=== PATIENT | female | born 1930 | race African-American/Black ===

== ENCOUNTER 2017-03-31 18:30 | Inpatient (IN) | payer OTHER ==
[2017-03-31] MEDS ORDERED: ACETAMINOPHEN 325 MG TABLET (FP) PO ONE (19:36)
--- NOTE | 2017-03-31 19:36 | PDOC ---
History of Present Illness - General Chief Complaint: Pain Stated Complaint: RT LEG PAIN Time Seen by Provider: 03/31/17 19:28 - History of Present Illness Initial Comments: 03/31/17 19:35 Patient is a 86-year-old female with past medical history of diabetes, coronary artery disease s/p bypass 6 years ago, hypertension who presents to the emergency department today complaining of right lower leg pain. Patient states that she woke up this morning and her leg was very stiff swollen and painful. She states this has never happened to her before. She currently takes aspirin but no other blood thinners. Denies recent travel, estrogen use, smoking. She states that it hurts to bear weight. Denies fevers, recent illness, chills, chest pain, shortness of breath, difficulty breathing, nausea, vomiting and diarrhea. Past History - Travel Traveled outside of the country in the last 30 days: No Close contact w/someone who was outside of country & ill: No - Past Medical History Allergies/Adverse Reactions: Allergies Allergy/AdvReac Type Severity Reaction Status Date / Time No Known Drug Allergies Allergy Verified 03/31/17 18:44 Home Medications: Ambulatory Orders Losartan Potassium [Cozaar -] 50 mg PO DAILY 08/03/15 Metformin HCl [Glucophage] 1,000 mg PO BID 08/03/15 Sitagliptin Phosphate [Januvia -] 50 mg PO DAILY@0700 08/03/15 Cholecalciferol (Vitamin D3) [Vitamin D3] 50,000 unit PO Q7D 08/17/15 Atorvastatin Ca [Lipitor] 40 mg PO HS 03/31/17 Anemia: No Asthma: No Cancer: No Cardiac Disorders: Yes (bypass 05/2011) CVA: No COPD: No CHF: No Dementia: No Diabetes: Yes GI Disorders: No Disorders: No HTN: Yes Hypercholesterolemia: Yes Liver Disease: No Seizures: No Thyroid Disease: No - Surgical History Abdominal Surgery: No Appendectomy: No Cardiac Surgery: Yes (cardiac bypass) Cholecystectomy: No Lung Surgery: No Neurologic Surgery: No Orthopedic Surgery: No - Immunization History Immunization Up to Date: Yes - Suicide/Smoking/Psychosocial Hx Smoking Status: Yes Smoking History: Never smoked Have you smoked in the past 12 months: No Number of Cigarettes Smoked Daily: 0 If you are a former smoker, when did you quit?: 40YRS AGO Information on smoking cessation initiated: No Hx Alcohol Use: No Drug/Substance Use Hx: No Substance Use Type: None Hx Substance Use Treatment: No Review of Systems - Review of Systems Able to Perform ROS?: Yes Comments:: 03/31/17 19:46 CONSTITUTIONAL: Absent: fever, chills, diaphoresis, generalized weakness, malaise, loss of appetite HEENT: Absent: rhinorrhea, nasal congestion, throat pain, throat swelling, difficulty swallowing, mouth swelling, ear pain, eye pain, visual Changes CARDIOVASCULAR: Absent: chest pain, loss of consciousness, palpitations, irregular heart rate, peripheral edema RESPIRATORY: Absent: cough, shortness of breath, dyspnea with exertion, orthopnea, wheezing, stridor, hemoptysis GASTROINTESTINAL: Absent: abdominal pain, abdominal distension, nausea, vomiting, diarrhea, constipation, melena, hematochezia GENITOURINARY: Absent: dysuria, frequency, urgency, hesitancy, hematuria, flank pain, genital pain MUSCULOSKELETAL: Present: RLE edema, pain. Absent: , arthralgia, joint swelling SKIN: Absent: rash, itching, pallor HEMATOLOGIC/IMMUNOLOGIC: Absent: easy bleeding, easy bruising, lymphadenopathy, frequent infections ENDOCRINE: Absent: unexplained weight gain, unexplained weight loss, heat intolerance, cold intolerance NEUROLOGIC: Absent: headache, focal weakness or paresthesias, dizziness, unsteady gait, seizure, mental status changes, bladder or bowel incontinence PSYCHIATRIC: Absent: anxiety, depression, suicidal or homicidal ideation, hallucinations. Is the patient limited Chadian proficient: No *Physical Exam - Vital Signs Last Vital Signs Temp Pulse Resp BP Pulse Ox 98.3 F 75 18 155/87 98 03/31/17 18:42 03/31/17 18:42 03/31/17 18:42 03/31/17 18:42 03/31/17 18:42 - Physical Exam Comments: 03/31/17 19:47 GENERAL: Well developed, well nourished. AAOx3 No acute distress, breathing easily in exam chair. HEENT: Normocephalic, atraumatic. PERRLA, EOMI. No conjunctival pallor. Sclera are non- icteric. Moist mucous membranes. Oropharynx is clear. NECK: Supple. Full ROM. No JVD. Carotid pulses 2+ and symmetric, without bruits. No thyromegaly. No lymphadenopathy. CARDIOVASCULAR: Regular rate and rhythm. No murmurs, rubs, or gallops. Distal pulses are 2+ and symmetric. PULMONARY: No evidence of respiratory distress. Lungs clear to auscultation bilaterally. No wheezing, rales or rhonchi. ABDOMINAL: Soft. Non-tender. Non-distended. No rebound or guarding. No organomegaly. Normoactive bowel sounds. MUSCULOSKELETAL Normal range of motion at all joints. No bony deformities or tenderness. No CVA tenderness. EXTREMITIES: Edema of RLE. Pain to palpation of the posterior lower extremity from the level of the knee and below. No cyanosis. No clubbing. SKIN: Warm and dry. Normal capillary refill. No rashes. No jaundice. NEUROLOGICAL: Alert, awake, appropriate. Cranial nerves 2-12 intact. No deficits to light touch and temperature in face, upper extremities and lower extremities. No motor deficits in the in face, upper extremities and lower extremities. Normoreflexic in the upper and lower extremities. Normal speech. Toes are down- going bilaterally. Gait is normal without ataxia. PSYCHIATRIC: Cooperative. Good eye contact. Appropriate mood and affect. ED Treatment Course - LABORATORY CBC & Chemistry Diagram: 03/31/17 20:12 03/31/17 20:12 Medical Decision Making - Medical Decision Making 03/31/17 19:36 Patient is a 86-year-old female with past medical history of diabetes, coronary artery disease s/p bypass 6 years ago, hypertension who presents to the emergency department today complaining of right lower leg pain. Given exam findings high suspicion for right lower extremity DVT. We will send the patient for duplex scan of the leg. We'll also give Tylenol for pain. Reevaluate. 03/31/17 20:05 Received a call from edie Benjamin. The duplex ultrasound of the right lower extremity shows a DVT in the right popliteal vein. We'll continue to workup the patient at this time for unprovoked DVT. Will see if pt is a candidate for outpatient DVT treatment 1.CBC, CMP, PT/INR, PTT 03/31/17 21:[address] Sandoval Labs come back within normal limits. BUN and creatinine are 17 over 1.0 respectively. We will call Dr. Sandoval at this time for further management of the patient. And to see if she could possibly follow-up as an outpatient. 03/31/17 21:48 Call back received from Dr. Sandoval. Given patient's past medical history and the fact that this is an unprovoked DVT, she would like to admit the patient for further workup. Recommending Lovenox at this time. First dose Lovenox given in the ED, patient to be admitted to [facility]. *DC/Admit/Observation/Transfer Diagnosis at time of Disposition: Popliteal DVT (deep venous thrombosis) Qualifiers: Chronicity: acute Laterality: right Qualified Code(s): I82.431 - Acute embolism and thrombosis of right popliteal vein - Discharge Dispostion Condition at time of disposition: Stable Admit: Yes
[2017-03-31] MEDS ORDERED: ACETAMINOPHEN 325 MG TABLET (FP) ONE (19:39)
[2017-03-31 20:23] LABS: BASOPHIL 1.3 % (0-2.0); EOSINOPHIL 2.1 % (0-4.5); MCH 26.3 pg (25.7-33.7); MCHC 34.5 g/dl (32.0-36.0); MEAN CELL VOLUME 76.3 fl (80-96); MEAN PLT VOLUME 8.1 fl (7.5-11.1); NEUTROPHILS 62.8 % (42.8-82.8); PLATELET COUNT 158 K/MM3 (134-434); RDW 15.7 % (11.6-15.6); WHITE BLOOD COUNT 9.6 K/mm3 (4.0-10.0)
[2017-03-31 20:37] LABS: INR 0.98 (0.82-1.09); PROTHROMBIN TIME (PATIENT) 11.1 SEC (9.98-11.88)
[2017-03-31 20:48] LABS: ALBUMIN 3.5 g/dl (3.4-5.0); ALK PHOS 92 U/L (45-117); ANION GAP 4 (8-16); BILIRUBIN,TOTAL 0.4 mg/dL (0.2-1.0); CALCIUM 9.5 mg/dL (8.5-10.1); CO2 30 mmol/L (21-32); GLUCOSE,RANDOM 125 mg/dL (74-106); SGOT/AST 16 U/L (15-37); SGPT/ALT 21 U/L (12-78); TOT PROT 7.4 g/dl (6.4-8.2)
[2017-03-31] MEDS ORDERED: ENOXAPARIN NA (PORCINE) 100 MG/1 ML DISP.SYRIN SQ ONE (22:58)
[2017-03-31] MEDS: ENOXAPARIN NA (PORCINE) 80 MG/0.8 ML DISP.SYRIN SQ SCH (23:12)
[2017-04-01] MEDS ORDERED: ACETAMINOPHEN 325 MG TABLET (FP) PO PRN (00:18)
[2017-04-01 02:36] VITALS: BMI 34.5
[2017-04-01] MEDS: metFORMIN HCL 500 MG TABLET (FP) PO SCH ×2 (06:35→16:43)
[2017-04-01] MEDS: sitaGLIPtin PHOSPHATE 25 MG TABLET (FP) PO SCH (06:36)
[2017-04-01] MEDS ORDERED: FLU VACCINE QUAD 60 MCG/0.5 ML (MDV 17-18) IM ONE (10:00)
[2017-04-01] MEDS: LOSARTAN POTASSIUM 50 MG TABLET (FP) PO SCH (11:07)
[2017-04-01] MEDS: ENOXAPARIN NA (PORCINE) 80 MG/0.8 ML DISP.SYRIN SQ SCH ×3 (11:08→22:14)
--- NOTE | 2017-04-01 11:24 | CONSULT ---
Consult Consult Specialty:: Hematology Reason for Consultation:: DVT - History of Present Illness History of Present Illness: Patient is a 86-year-old female with past medical history of diabetes, coronary artery disease s/p bypass 6 years ago, hypertension who presents to the emergency department today complaining of right lower leg pain. Patient states that she woke up this morning and her leg was very stiff swollen and painful. She states this has never happened to her before. She currently takes aspirin but no other blood thinners. Denies recent travel, estrogen use, smoking. She states that it hurts to bear weight. Denies fevers, recent illness, chills, chest pain, shortness of breath, difficulty breathing, nausea, vomiting and diarrhea. - History Source History Provided By: Patient, Medical Record Limitations to Obtaining History: No Limitations - Past Medical History Cardio/Vascular: Yes: CAD. No: HTN - Alcohol/Substance Use Hx Alcohol Use: No - Smoking History Smoking history: Former smoker Have you smoked in the past 12 months: No Aproximately how many cigarettes per day: 0 If you are a former smoker, when did you quit?: 40YRS AGO Home Medications - Allergies Allergies/Adverse Reactions: Allergies Allergy/AdvReac Type Severity Reaction Status Date / Time No Known Drug Allergies Allergy Verified 03/31/17 18:44 - Home Medications Home Medications: Ambulatory Orders Losartan Potassium [Cozaar -] 50 mg PO DAILY 08/03/15 Metformin HCl [Glucophage] 1,000 mg PO BID 08/03/15 Sitagliptin Phosphate [Januvia -] 50 mg PO DAILY@0700 08/03/15 Cholecalciferol (Vitamin D3) [Vitamin D3] 50,000 unit PO Q7D 08/17/15 Atorvastatin Ca [Lipitor] 40 mg PO HS 03/31/17 Physical Exam Vital Signs: Vital Signs Temperature 97.5 F L 04/01/17 10:52 Pulse Rate 78 04/01/17 10:52 Respiratory Rate 18 04/01/17 10:52 Blood Pressure 130/72 04/01/17 10:52 O2 Sat by Pulse Oximetry (%) 98 04/01/17 02:23 Constitutional: Yes: Well Nourished, No Distress, Calm Eyes: Yes: Conjunctiva Clear, EOM Intact HENT: Yes: Atraumatic, Normocephalic Neck: Yes: Supple, Trachea Midline Cardiovascular: Yes: Regular Rate and Rhythm Respiratory: Yes: Regular, CTA Bilaterally Gastrointestinal: Yes: Normal Bowel Sounds, Soft, Abdomen, Obese Extremities: Yes: WNL, Other (R>L) Edema: No Integumentary: Yes: WNL Neurological: Yes: Alert, Oriented Psychiatric: Yes: Alert, Oriented Imaging - Results Ultrasound: Report Reviewed Problem List - Problems (1) Popliteal DVT (deep venous thrombosis) Code(s): I82.439 - ACUTE EMBOLISM AND THROMBOSIS OF UNSPECIFIED POPLITEAL VEIN Qualifiers: Chronicity: acute Laterality: right Qualified Code(s): I82.431 - Acute embolism and thrombosis of right popliteal vein; I82.431 - Acute embolism and thrombosis of right popliteal vein; I82.431 - Acute embolism and thrombosis of right popliteal vein; I82.431 - Acute embolism and thrombosis of right popliteal vein (2) Hypertension Code(s): I10 - ESSENTIAL (PRIMARY) HYPERTENSION Qualifiers: Hypertension type: essential hypertension Qualified Code(s): I10 - Essential (primary) hypertension; I10 - Essential (primary) hypertension; I10 - Essential (primary) hypertension Assessment/Plan DVT ( new), though age and co-morbidities play a role, thus far no specific risk factor elicited. Microcytosis without anemia High RDW. -change to Eliquis from tomorrow (10 mg twice daily for 7 days followed by 5 mg twice daily) - for iron studies -she has a good Performance status, to consider OP cancer screening including GI w/u. -d/w Daughters and pt. Left message to office.
--- NOTE | 2017-04-01 13:05 | EKG ---
Test Reason : Blood Pressure : / mmHG Vent. Rate : 063 BPM Atrial Rate : 063 BPM P-R Int : 216 ms QRS Dur : 090 ms QT Int : 400 ms P-R-T Axes : 069 -14 048 degrees QTc Int : 409 ms POOR DATA QUALITY, INTERPRETATION MAY BE ADVERSELY AFFECTED SINUS RHYTHM WITH 1ST DEGREE A-V BLOCK NONSPECIFIC T WAVE ABNORMALITY ABNORMAL ECG WHEN COMPARED WITH ECG OF 17-AUG-2015 18:38, NO SIGNIFICANT CHANGE WAS FOUND Confirmed by VIELKA PEREZ MD ([id number]) on 04/01/2017 1:05:14 PM Referred By: Confirmed By:VIELKA PEREZ MD
--- NOTE | 2017-04-01 17:22 | HP ---
Admitting History and Physical - Primary Care Physician PCP: Santi Sandoval - Admission History of Present Illness: - 86-year-old female with past medical history of diabetes, coronary artery disease s/p bypass 6 years ago, hypertension who presents to the emergency department today complaining of right lower leg pain. Patient states that she woke up this morning and her leg was very stiff swollen and painful. She states this has never happened to her before. She currently takes aspirin but no other blood thinners. Denies recent travel, estrogen use, smoking. She states that it hurts to bear weight. Denies fevers, recent illness, chills, chest pain, shortness of breath, difficulty breathing, nausea, vomiting and diarrhea. - Past Medical History Cardiovascular: Yes: CAD. No: HTN Endocrine: Yes: Diabetes Mellitus - Smoking History Smoking history: Former smoker Have you smoked in the past 12 months: No Aproximately how many cigarettes per day: 0 If you are a former smoker, when did you quit?: 40YRS AGO - Alcohol/Substance Use Hx Alcohol Use: No Home Medications - Allergies Allergies/Adverse Reactions: Allergies Allergy/AdvReac Type Severity Reaction Status Date / Time No Known Drug Allergies Allergy Verified 03/31/17 18:44 - Home Medications Home Medications: Ambulatory Orders Losartan Potassium [Cozaar -] 50 mg PO DAILY 08/03/15 Metformin HCl [Glucophage] 1,000 mg PO BID 08/03/15 Sitagliptin Phosphate [Januvia -] 50 mg PO DAILY@0700 08/03/15 Cholecalciferol (Vitamin D3) [Vitamin D3] 50,000 unit PO Q7D 08/17/15 Atorvastatin Ca [Lipitor] 40 mg PO HS 03/31/17 Physical Examination Vital Signs: Vital Signs Temperature 98.5 F 04/01/17 14:14 Pulse Rate 83 04/01/17 14:14 Respiratory Rate 20 04/01/17 14:14 Blood Pressure 139/64 04/01/17 14:14 O2 Sat by Pulse Oximetry (%) 99 04/01/17 09:00 Constitutional: Yes: No Distress HENT: Yes: Atraumatic Neck: Yes: Supple Cardiovascular: Yes: Regular Rate and Rhythm Respiratory: Yes: CTA Bilaterally Gastrointestinal: Yes: Normal Bowel Sounds Extremities: Yes: Other (rlex sweling) Neurological: Yes: Alert, Oriented Problem List - Problems (1) Popliteal DVT (deep venous thrombosis) Assessment/Plan: on lovenox injections Code(s): I82.439 - ACUTE EMBOLISM AND THROMBOSIS OF UNSPECIFIED POPLITEAL VEIN Qualifiers: Chronicity: acute Laterality: right Qualified Code(s): I82.431 - Acute embolism and thrombosis of right popliteal vein; I82.431 - Acute embolism and thrombosis of right popliteal vein; I82.431 - Acute embolism and thrombosis of right popliteal vein; I82.431 - Acute embolism and thrombosis of right popliteal vein (2) Hypertension Assessment/Plan: on meds stable Code(s): I10 - ESSENTIAL (PRIMARY) HYPERTENSION Qualifiers: Hypertension type: essential hypertension Qualified Code(s): I10 - Essential (primary) hypertension; I10 - Essential (primary) hypertension; I10 - Essential (primary) hypertension (3) Diabetes Assessment/Plan: on po meds metformin Code(s): E11.9 - TYPE 2 DIABETES MELLITUS WITHOUT COMPLICATIONS Assessment/Plan Laboratory Tests 03/31/17 03/31/17 03/31/17 20:12 20:12 20:12 WBC 9.6 RBC 4.62 Hgb 12.2 Hct 35.2 MCV 76.3 L MCH 26.3 MCHC 34.5 RDW 15.7 H Plt Count 158 D MPV 8.1 Neutrophils % 62.8 Lymphocytes % 27.2 D Monocytes % 6.6 Eosinophils % 2.1 D Basophils % 1.3 PT with INR 11.10 INR 0.98 PTT (Actin FS) Sodium 140 Potassium 4.7 Chloride 106 Carbon Dioxide 30 D Anion Gap 4 L BUN 18 D Creatinine 1.0 Creat Clearance w eGFR 52.69 POC Glucometer Random Glucose 125 H D Calcium 9.5 Total Bilirubin 0.4 D AST 16 D ALT 21 D Alkaline Phosphatase 92 D Total Protein 7.4 Albumin 3.5 03/31/17 04/01/17 04/01/17 20:12 06:26 16:13 WBC RBC Hgb Hct MCV MCH MCHC RDW Plt Count MPV Neutrophils % Lymphocytes % Monocytes % Eosinophils % Basophils % PT with INR INR PTT (Actin FS) 29.1 Sodium Potassium Chloride Carbon Dioxide Anion Gap BUN Creatinine Creat Clearance w eGFR POC Glucometer 153 132 Random Glucose Calcium Total Bilirubin AST ALT Alkaline Phosphatase Total Protein Albumin Active Medications Generic Name Dose Route Start Last Admin Trade Name Freq PRN Reason Stop Dose Admin Acetaminophen 650 mg 04/01/17 00:18 Tylenol - PO Q6H PRN FEVER OR PAIN Apixaban 10 mg 04/02/17 10:00 Eliquis - PO BID DEEPAK Atorvastatin Calcium 40 mg 04/01/17 22:00 Lipitor - PO HS DEEPAK Enoxaparin Sodium 86 mg 03/31/17 22:30 03/31/17 23:12 Lovenox - SQ 86 mg ONCE DEEPAK Administration Enoxaparin Sodium 80 mg 04/01/17 10:00 04/01/17 11:08 Lovenox - SQ 80 mg BID DEEPAK Administration Losartan Potassium 50 mg 04/01/17 10:00 04/01/17 11:07 Cozaar - PO 50 mg DAILY DEEPAK Administration Metformin HCl 1,000 mg 04/01/17 07:00 04/01/17 16:43 Glucophage - PO 1,000 mg BIDI DEEPAK Administration Sitagliptin Phosphate 50 mg 04/01/17 07:00 04/01/17 06:36 Januvia - PO 50 mg DAILY@0700 DEEPAK Administration
[2017-04-01] MEDS: ATORVASTATIN CA 40 MG TABLET (FP) PO SCH (21:29)
[2017-04-02] MEDS: metFORMIN HCL 500 MG TABLET (FP) PO SCH ×2 (06:16→17:16)
[2017-04-02] MEDS: sitaGLIPtin PHOSPHATE 25 MG TABLET (FP) PO SCH (06:16)
[2017-04-02 07:29] LABS: BASOPHIL 0.7 % (0-2.0); MCH 26.1 pg (25.7-33.7); MCHC 33.8 g/dl (32.0-36.0); MEAN CELL VOLUME 77.1 fl (80-96); MEAN PLT VOLUME 8.8 fl (7.5-11.1); NEUTROPHILS 61.5 % (42.8-82.8); PLATELET COUNT 161 K/MM3 (134-434); RDW 16.3 % (11.6-15.6)
[2017-04-02 08:05] LABS: FERRITIN 39.757 ng/ml (6.9-282.5)
[2017-04-02] MEDS ORDERED: PT OWN MED DRAWER 7, Y5N ONE ×2 (10:57→21:32)
[2017-04-02] MEDS: LOSARTAN POTASSIUM 50 MG TABLET (FP) PO SCH (11:00)
[2017-04-02] MEDS: ENOXAPARIN NA (PORCINE) 80 MG/0.8 ML DISP.SYRIN SQ SCH (11:00)
[2017-04-02] MEDS: APIXABAN 5 MG TABLET PO SCH ×2 (11:00→21:34)
--- NOTE | 2017-04-02 19:26 | PN ---
Progress Note, Physician History of Present Illness: no complaints - Current Medication List Current Medications: Active Medications Acetaminophen (Tylenol -) 650 mg PO Q6H PRN PRN Reason: FEVER OR PAIN Last Admin: 04/02/17 17:30 Dose: 650 mg Apixaban (Eliquis -) 10 mg PO BID PENDING SALE TO [facility] Last Admin: 04/02/17 11:00 Dose: 10 mg Atorvastatin Calcium (Lipitor -) 40 mg PO HS PENDING SALE TO [facility] Last Admin: 04/01/17 21:29 Dose: 40 mg Losartan Potassium (Cozaar -) 50 mg PO DAILY PENDING SALE TO [facility] Last Admin: 04/02/17 11:00 Dose: 50 mg Metformin HCl (Glucophage -) 1,000 mg PO BIDI PENDING SALE TO [facility] Last Admin: 04/02/17 17:16 Dose: 1,000 mg Sitagliptin Phosphate (Januvia -) 50 mg PO DAILY@0700 PENDING SALE TO [facility] Last Admin: 04/02/17 06:16 Dose: 50 mg - Objective Vital Signs: Vital Signs Temperature 98.3 F 04/02/17 18:00 Pulse Rate 83 04/02/17 18:00 Respiratory Rate 20 04/02/17 18:00 Blood Pressure 139/76 04/02/17 18:00 O2 Sat by Pulse Oximetry (%) 96 04/02/17 09:00 Constitutional: Yes: No Distress HENT: Yes: Atraumatic Neck: Yes: Supple Cardiovascular: Yes: Regular Rate and Rhythm Respiratory: Yes: CTA Bilaterally Gastrointestinal: Yes: Normal Bowel Sounds Extremities: Yes: WNL Edema: RLE: Trace Neurological: Yes: Alert, Oriented Labs: CBC, BMP 04/02/17 06:40 INR, PTT INR 0.98 (0.82-1.09) 03/31/17 20:12 Problem List - Problems (1) Popliteal DVT (deep venous thrombosis) Assessment/Plan: on eliquis today HEMATOLOGY to give prescription Code(s): I82.439 - ACUTE EMBOLISM AND THROMBOSIS OF UNSPECIFIED POPLITEAL VEIN Qualifiers: Chronicity: acute Laterality: right Qualified Code(s): I82.431 - Acute embolism and thrombosis of right popliteal vein; I82.431 - Acute embolism and thrombosis of right popliteal vein; I82.431 - Acute embolism and thrombosis of right popliteal vein; I82.431 - Acute embolism and thrombosis of right popliteal vein (2) Hypertension Assessment/Plan: on meds stable Code(s): I10 - ESSENTIAL (PRIMARY) HYPERTENSION Qualifiers: Hypertension type: essential hypertension Qualified Code(s): I10 - Essential (primary) hypertension; I10 - Essential (primary) hypertension; I10 - Essential (primary) hypertension (3) Diabetes Assessment/Plan: on po meds metformin Code(s): E11.9 - TYPE 2 DIABETES MELLITUS WITHOUT COMPLICATIONS Assessment/Plan HEMATOLOGY TO [facility] PRESCRIPTION
[2017-04-02] MEDS: ATORVASTATIN CA 40 MG TABLET (FP) PO SCH (21:34)
[2017-04-03] MEDS: sitaGLIPtin PHOSPHATE 25 MG TABLET (FP) PO SCH (06:06)
[2017-04-03] MEDS: metFORMIN HCL 500 MG TABLET (FP) PO SCH (06:06)
[2017-04-03 09:08] VITALS: PULSE 81
--- NOTE | 2017-04-03 09:26 | CON.CARD ---
Cardiology Consult (text) - Consultation Consultation Note: Cardiology Consult Ms. Fitzgerald is my office patient: 86F with CAD s/p CABG, DM, HTN presented to ER with RLE pain and swelling found to have RLE DVT. Hemodynamically stable, with O2 saturation 96-99% on room air. No chest or back pain, no pleuritic pain. She has not been tachycardic. Denies recent air or prolonged car travel. She admittedly has not been compliant w/ routine cancer screening. MEDS: Reviewed in EMR, charted separately. Started on Eliquis 10mg BID by Heme. ALL: None. FH: She denies hx of VTE or SCD SH: Nonsmoker, no ETOH Exam: Comfortable, no distress Afebrile. P: 80s, sinus. BP: 130s/80s Anicteric CV: S1,2. RRR. No M/R/G Chest: CTA b/l Abd: obese, soft, NT Ext: RLE 2+ edema c/w LLE Labs and Data ECG: NSR 63bpm, 1st degree AVB, Nonspecific T wave changes V1, V2 Laboratory Tests 03/31/17 04/02/17 20:12 06:40 WBC 7.0 Hgb 11.6 Plt Count 161 Sodium 140 Potassium 4.7 Creatinine 1.0 IMP: Unprovoked DVT CAD s/p CABG REC: Aside from her RLE discomfort, she is otherwise asx and hemodynamically stable with normal oxygenation on room air. Will obtain an echo to assess for PHTN, although clinically PE seems very unlikely. Continue Eliquis, dose adjusted for acute DVT. Adjust dose moving forward as per Heme. Outpatient age appropriate malignancy screening. If echo is generally WNL, she may be discharged for outpatient treatment and follow up. Thank you.
[2017-04-03] MEDS ORDERED: PT OWN MED DRAWER 7, Y5N ONE (11:12)
[2017-04-03] MEDS: APIXABAN 5 MG TABLET PO SCH (11:23)
[2017-04-03] MEDS: LOSARTAN POTASSIUM 50 MG TABLET (FP) PO SCH (11:23)
--- NOTE | 2017-04-03 14:34 | DS ---
Physical Examination Vital Signs: Vital Signs Temperature 98.0 F 04/03/17 09:07 Pulse Rate 81 04/03/17 09:07 Respiratory Rate 20 04/03/17 09:07 Blood Pressure 139/73 04/03/17 09:07 O2 Sat by Pulse Oximetry (%) 98 04/03/17 09:00 Constitutional: Yes: No Distress HENT: Yes: Atraumatic Neck: Yes: Supple Cardiovascular: Yes: Regular Rate and Rhythm Respiratory: Yes: CTA Bilaterally Gastrointestinal: Yes: Normal Bowel Sounds Extremities: Yes: WNL Neurological: Yes: Alert, Oriented Labs: CBC, BMP 04/02/17 06:40 Discharge Summary Reason For Visit: DVT OF POPLITEAL VEIN Current Active Problems Diabetes (Acute) Popliteal DVT (deep venous thrombosis) (Acute) Condition: Stable - Instructions Diet, Activity, Other Instructions: make your appointment with dr vivas for next week for follow up and eliquis prescription Referrals: Santi Sandoval MD [Primary Care Provider] - Constantino Vivas MD [Staff Physician] - Disposition: HOME - Home Medications Comprehensive Discharge Medication List: Ambulatory Orders Losartan Potassium [Cozaar -] 50 mg PO DAILY 08/03/15 Metformin HCl [Glucophage] 1,000 mg PO BID 08/03/15 Sitagliptin Phosphate [Januvia -] 50 mg PO DAILY@0700 08/03/15 Cholecalciferol (Vitamin D3) [Vitamin D3] 50,000 unit PO Q7D 08/17/15 Atorvastatin Ca [Lipitor] 40 mg PO HS 03/31/17 Apixaban [Eliquis -] 10 mg PO BID #30 tablet 04/03/[address] vivas next week pharmacy called as medication was not covered by insurance i told them to give 5 days supply to patient and she can pay out of pocket , pt need to see dr vivas in office next week to discuss this matter and further prescriptions
--- NOTE | 2017-04-03 14:40 | PN ---
Progress Note (short form) - Note Progress Note: PAtient seen and examined Denies any complaints Last Vital Signs Temp Pulse Resp BP Pulse Ox 98.0 F 81 20 139/73 98 04/03/17 09:07 04/03/17 09:07 04/03/17 09:07 04/03/17 09:07 04/03/17 09:00 Cor: RSR, No murmurs, No gallops Lungs: Clear to P&A Abd: Soft, Normal bowel sounds, No organomegaly Ext:No significant edema Skin: No rashes, Integument intact Abnormal Lab Results 04/02/17 06:40 TIBC 228 L Iron Saturation 14 L Active Medications Generic Name Dose Route Start Last Admin Trade Name Freq PRN Reason Stop Dose Admin Acetaminophen 650 mg 04/01/17 00:18 04/02/17 17:30 Tylenol - PO 650 mg Q6H PRN Administration FEVER OR PAIN Apixaban 10 mg 04/02/17 10:00 04/03/17 11:23 Eliquis - PO 10 mg BID DEEPAK Administration Atorvastatin Calcium 40 mg 04/01/17 22:00 04/02/17 21:34 Lipitor - PO 40 mg HS DEEPAK Administration Losartan Potassium 50 mg 04/01/17 10:00 04/03/17 11:23 Cozaar - PO 50 mg DAILY DEEPAK Administration Metformin HCl 1,000 mg 04/01/17 07:00 04/03/17 06:06 Glucophage - PO 1,000 mg BIDI DEEPAK Administration Sitagliptin Phosphate 50 mg 04/01/17 07:00 04/03/17 06:06 Januvia - PO 50 mg DAILY@0700 DEEPAK Administration A/P 86 y/o patient with RLE DVT Continue Eliquis, 10mg bi d for 7 days then 5mg bid Outpatient malignancy screening low iron sat--ferrex 150mg dialy outpatient GI f/u f/u protein studies outpatietn CT scans/mammogram discussed in detail with patient and family
[2017-04-03 14:58] VITALS: BP 148/78; TEMP 97.4
[2017-04-04 00:11] LABS: A/G RATIO 0.9 (0.7-1.7); ALPHA-1-GLOBULIN 0.3 g/dL (0.0-0.4); GAMMA GLOBULIN 1.6 g/dL (0.4-1.8); GLOBULIN, TOTAL 3.6 g/dL (2.2-3.9); M-SPIKE 0.2 g/dL (Not Observed); TOTAL PROTEIN 6.6 g/dL (6.0-8.5)
--- NOTE | 2017-04-06 14:18 | PN ---
Progress Note (short form) - Note Progress Note: [employer] [place] , got a call from patients daughter that eliquis not filled. Dr. turner asked her to get her mother to the ER if she was not on anticoagulant Patients daughter bought her a supply for 3 days and patient has been on 10mg bid since Sat night PAtients adughter called today ---asked patient to take mother to ER if symptoms worse or any new smptoms. we called in prescription for Xeralto 15mg bid with food. Last dose of eliquis was this morning at 6am --10mg Patient to switch to xeralto 15mg bid with food starting tonight PAtient given an appointment for Wed asked her to go to ER for any symptoms
== END 2017-04-03 16:28 | disposition home or self-care (01) | DRG 301 ==
LOC: JER 18:30 → JERFT 18:30 → JERBED 23:19 → J5S 04-01 02:07
PROVIDERS: ADMIT Internal Medicine; ATTEND Internal Medicine
DX: I82.431 Acute embolism and thrombosis of right popliteal vein (principal); I82.441 Acute embolism and thrombosis of right tibial vein; I10 Essential (primary) hypertension; E11.9 Type 2 diabetes mellitus without complications; I25.10 Atherosclerotic heart disease of native coronary artery without angina pectoris; Z95.1 Presence of aortocoronary bypass graft; E78.5 Hyperlipidemia, unspecified; Z79.84 Long term (current) use of oral hypoglycemic drugs; Z87.891 Personal history of nicotine dependence; I44.0 Atrioventricular block, first degree
CPT/HCPCS: 36415; 71010-TC; 80053; 82728; 82784; 83540; 83550; 83615; 84155; 84165; 85025; 85044; 85610; 85730; 86334; 90688; 93005; 93010; 93306-TC; 93971-TC; 99285-25; G0008

== ENCOUNTER 2018-07-31 17:15 | Emergency (ER) | payer OTHER ==
[2018-07-31 17:21] VITALS: BMI 33.6
--- NOTE | 2018-07-31 18:22 | PDOC ---
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 Pt admits to running out of her xarelto over 1 month ago but not following up with Dr. Shannon (hem onc). Admits to worsening right calf pain and swelling over the past day without CP, SOB, abdominal pain, GUEVARA, F/C/N/V. Denies any other complaints other than chronic right buttock pain that is the same quality and intensity in the past. Past History - Past Medical History Allergies/Adverse Reactions: Allergies Allergy/AdvReac Type Severity Reaction Status Date / Time No Known Drug Allergies Allergy Verified 07/31/18 17:21 Home Medications: Ambulatory Orders Losartan Potassium [Cozaar -] 50 mg PO DAILY 08/03/15 Metformin HCl [Glucophage] 1,000 mg PO BID 08/03/15 Sitagliptin Phosphate [Januvia -] 50 mg PO DAILY@0700 08/03/15 Cholecalciferol (Vitamin D3) [Vitamin D3] 50,000 unit PO Q7D 08/17/15 Atorvastatin Ca [Lipitor] 40 mg PO HS 03/31/17 Rivaroxaban [Xarelto -] 1 tab PO BID 04/20/17 Rivaroxaban [Xarelto] 15 mg PO BID #42 tab 07/31/18 Anemia: No Asthma: No Cancer: No Cardiac Disorders: Yes (bypass 05/2011) CVA: No COPD: No CHF: No Dementia: No Diabetes: Yes GI Disorders: No Disorders: No HTN: Yes Hypercholesterolemia: Yes Liver Disease: No Seizures: No Thyroid Disease: No Other medical history: DVT - Surgical History Abdominal Surgery: No Appendectomy: No Cardiac Surgery: Yes (cardiac bypass) Cholecystectomy: No Lung Surgery: No Neurologic Surgery: No Orthopedic Surgery: No - Immunization History Immunization Up to Date: Yes - Suicide/Smoking/Psychosocial Hx Smoking Status: Yes Smoking History: Never smoked Have you smoked in the past 12 months: No Number of Cigarettes Smoked Daily: 0 If you are a former smoker, when did you quit?: 40YRS AGO Hx Alcohol Use: No Drug/Substance Use Hx: No Substance Use Type: None Hx Substance Use Treatment: No Review of Systems - Review of Systems Constitutional: No: Chills, Fever Respiratory: No: Shortness of Breath Cardiac (ROS): Yes: Edema (right leg). No: Chest Pain ABD/GI: No: Constipated, Diarrhea, Nausea, Vomiting Musculoskeletal: Yes: Other (right lower leg swelling and pain) Integumentary: No: Change in Color, Rash Neurological: No: Paresthesia, Weakness, Unsteady Gait *Physical Exam - Vital Signs Last Vital Signs Temp Pulse Resp BP Pulse Ox 98 F 79 18 147/81 97 07/31/18 17:18 07/31/18 17:18 07/31/18 17:18 07/31/18 17:18 07/31/18 17:18 - Physical Exam General Appearance: Yes: Nourished, Appropriately Dressed. No: Apparent Distress HEENT: positive: EOMI Respiratory/Chest: positive: Lungs Clear, Normal Breath Sounds. negative: Respiratory Distress, Accessory Muscle Use, Crackles, Rales, Rhonchi, Stridor, Wheezing Cardiovascular: positive: Regular Rhythm, Regular Rate, S1, S2 Gastrointestinal/Abdominal: positive: Normal Bowel Sounds, Flat, Soft. negative : Pulsatile Mass, Distended, Guarding, Rebound, Tenderness Extremity: positive: Normal Capillary Refill, Swelling (right lower leg. Calf tenderness). negative: Cyanosis Integumentary: positive: Normal Color, Dry, Warm Neurologic: positive: Fully Oriented, Alert, Normal Mood/Affect, Normal Response , Motor Strength 5/5 Moderate Sedation - Procedure Monitoring Vital Signs: Procedure Monitoring Vital Signs Temperature 98 F 07/31/18 17:18 Pulse Rate 79 07/31/18 17:18 Respiratory Rate 18 07/31/18 17:18 Blood Pressure 147/81 07/31/18 17:18 O2 Sat by Pulse Oximetry (%) 97 07/31/18 17:18 ED Treatment Course - LABORATORY CBC & Chemistry Diagram: 07/31/18 19:00 07/31/18 19:00 - RADIOLOGY Radiology Studies Ordered: Category Date Time Status DUPLEX VASCUL US-1 LEG [US] Stat Ultrasound 07/31/18 18:18 Ordered Medical Decision Making - Medical Decision Making 87 yo female presents to ED with 2 days of right lower leg pain and swelling with hx of positive DVT and did not renew her xarelto prescription Denies SOB or CP Vitals WNL, not tachy or tachypnic 07/31/18 20:50 positive DVT study, right politeal Starting lovenox and admitting to hospitalist 07/31/18 22:55 Dr. Shannon contacted, states pt can be DC on home dose xarelto 50mg BID 3 weeks Pt safe for DC home with PCP and Hem onc follow up Pt understands and agrees with plan *DC/Admit/Observation/Transfer Diagnosis at time of Disposition: DVT (deep venous thrombosis) - Discharge Dispostion Disposition: HOME Condition at time of disposition: Good Decision to Admit order: No - Prescriptions - Referrals - Patient Instructions - Post Discharge Activity
[2018-07-31 19:08] LABS: BASO % 0.6 % (0-2.0); EOS % 2.2 % (0-4.5); HEMATOCRIT 35.4 % (32.4-45.2); HEMOGLOBIN 12.2 GM/dL (10.7-15.3); LYMPH % 33.2 % (8-40); MCH 27.4 pg (25.7-33.7); MCHC 34.5 g/dl (32.0-36.0); MEAN CELL VOLUME 79.6 fl (80-96); MEAN PLT VOLUME 8.1 fl (7.5-11.1); MONO % 4.4 % (3.8-10.2); NEUT % 59.6 % (42.8-82.8); PLATELET COUNT 171 K/MM3 (134-434); RBC 4.44 M/mm3 (3.60-5.2); RDW 16.4 % (11.6-15.6)
--- NOTE | 2018-07-31 19:17 | PDOC ---
Attending Attestation - Resident Resident Name: Patrick Sharif - ED Attending Attestation I have performed the following: I have examined & evaluated the patient, The case was reviewed & discussed with the resident, I agree w/resident's findings & plan - Medical Decision Making 07/31/18 19:29 Pt will get sono to r/o DVT in her swollen leg. 07/31/18 20:47 Patient Name: APRIL DUARTE THIS IS A PRELIMINARY REPORT FROM [facility] EXAM: Right extremity venous duplex ultrasound IMAGES: 25 DATE OF EXAM: 2018-07-31 19:04:14 REASON FOR EXAM: Rule out DVT COMPARISON: None. FINDINGS: *Positive nonocclusive DVT in the popliteal vein. Other deep veins appear patent. Calf edema. No Valentine's cyst. 07/31/18 22:54 Pt was going to be admitted; however, the admitting team contacted her breaker machine operator Dr. Shannon's group and they agree that pt can go with xarelto 15mg PO BID x [address] Shannon will alter the dose. This is appropriate treatment for acute blood clot. Pt advised to call Dr. Shannon's office to make appt. <Yana Smith - Last Filed: 07/31/18 22:53> - HPI HPI: 07/31/18 20:00 The patient is a 87 year old female, with a significant past medical history of DM, HTN, HLD, CABG (x4, 7 years ago), and DVT (noncompliant with Xarelto x1 month), who presents to the emergency department with, right calf pain and swelling. She denies recent fevers, chills, headache or dizziness. She denies recent nausea, vomit, diarrhea or constipation. She denies recent dysuria, frequency, urgency or hematuria. She denies recent chest pain or shortness of breath. Allergies: NKDA Heme/Onc: Dr. Shannon - Physicial Exam PE: 07/31/18 23:32 GENERAL: Awake, alert, and fully oriented, in no acute distress HEAD: No signs of trauma EYES: PERRLA, EOMI, sclera anicteric, conjunctiva clear ENT: Auricles normal inspection, hearing grossly normal, nares patent, oropharynx clear without exudates. Moist mucosa NECK: Normal ROM, supple, no lymphadenopathy, JVD, or masses LUNGS: Breath sounds equal, clear to auscultation bilaterally. No wheezes, and no crackles HEART: Regular rate and rhythm, normal S1 and S2, no murmurs, rubs or gallops ABDOMEN: Soft, nontender, normoactive bowel sounds. No guarding, no rebound. No masses EXTREMITIES: 2+ RLE edema with associated right calf pain. Normal range of motion. No clubbing or cyanosis. No cords, erythema, or tenderness NEUROLOGICAL: Cranial nerves II through XII grossly intact. Normal speech, normal gait SKIN: Warm, Dry, normal turgor, no rashes or lesions noted. <Scott Oconnor - Last Filed: 07/31/18 23:32> Attestations - Attestations 07/31/18 20:01 Documentation prepared by Scott Oconnor, acting as medical administrative for Yana Smith MD. <Scott Oconnor - Last Filed: 07/31/18 23:32>
[2018-07-31 20:14] LABS: ALBUMIN 3.6 g/dl (3.4-5.0); ALK PHOS 123 U/L (45-117); ANION GAP 4 MMOL/L (8-16); BILIRUBIN,TOTAL 0.2 mg/dL (0.2-1); BLOOD UREA NITROGEN 24 mg/dL (7-18); CALCIUM 9.3 mg/dL (8.5-10.1); CHLORIDE 108 mmol/L (98-107); CO2 29 mmol/L (21-32); CREATININE 0.9 mg/dL (0.55-1.3); GLUCOSE,RANDOM 176 mg/dL (74-106); INR 0.98 (0.83-1.09); PROTHROMBIN TIME (PATIENT) 11.6 SEC (9.7-13.0); SGOT/AST 19 U/L (15-37); SGPT/ALT 22 U/L (13-61); SODIUM 141 mmol/L (136-145); TOT PROT 7.4 g/dl (6.4-8.2)
[2018-07-31 20:17] LABS: ACTIVATED PTT 28.9 SECONDS (25.2-36.5)
[2018-07-31] MEDS ORDERED: ENOXAPARIN NA (PORCINE) 80 MG/0.8 ML DISP.SYRIN SQ ONE ×2 (20:47→21:14)
[2018-07-31 21:29] VITALS: PULSE 73; TEMP 97.8
[2018-07-31 23:12] VITALS: BP 159/66
--- NOTE | 2018-08-01 22:11 | EKG ---
Test Reason : Blood Pressure : / mmHG Vent. Rate : 064 BPM Atrial Rate : 064 BPM P-R Int : 198 ms QRS Dur : 102 ms QT Int : 382 ms P-R-T Axes : 043 -17 045 degrees QTc Int : 394 ms NORMAL SINUS RHYTHM T WAVE ABNORMALITY, CONSIDER ANTERIOR ISCHEMIA ABNORMAL ECG WHEN COMPARED WITH ECG OF 31-MAR-2017 23:29, NO SIGNIFICANT CHANGE WAS FOUND Confirmed by MARÍA VILLASENOR MD ([id number]) on 08/01/2018 10:10:55 PM Referred By: Confirmed By:MARÍA VILLASENOR MD
== END 2018-07-31 23:15 | disposition home or self-care (01) ==
LOC: JER 17:15 → JERBED 21:43 → UNDOADMIN 21:43 → JER 23:15
PROC: 3E013GC Introduction of Other Therapeutic Substance into Subcutaneous Tissue, Percutaneous Approach (ICD-10-PCS; principal; 2018-07-31)
DX: I82.431 Acute embolism and thrombosis of right popliteal vein (principal); I25.10 Atherosclerotic heart disease of native coronary artery without angina pectoris; I10 Essential (primary) hypertension; Z95.1 Presence of aortocoronary bypass graft; E11.9 Type 2 diabetes mellitus without complications; Z79.84 Long term (current) use of oral hypoglycemic drugs; E78.5 Hyperlipidemia, unspecified; Z86.718 Personal history of other venous thrombosis and embolism; Z79.01 Long term (current) use of anticoagulants; Z91.14 Patient's other noncompliance with medication regimen
CPT/HCPCS: 36415; 71045-TC-FY; 80053; 85025; 85610; 85730; 93005; 93010; 93971-TC; 96372; 99283-25